=== PATIENT | male | born 1955 | race African-American/Black ===

== ENCOUNTER 2016-08-01 10:09 | Emergency (ER) | payer MEDICAID ==
[~2016-08-01] VITALS: Ht 185.4 cm; Wt 106.0 kg
[~2016-08-01 10:09] MED LIST: AMLO10TA4 PO; ATOR20TA PO; CIPR-263 PO; METF500T4 PO; MOBI7 PO; PROT40 PO; SIMV20TA6 PO; TAMS-11 PO
[2016-08-01 11:38] LABS: BASOPHILS % 0.3 % (0.0-2.0); EOSINOPHILS % 0.1 % (0.0-5.0); HEMATOCRIT. 44.6 % (42.0-52.0); HEMOGLOBIN. 14.7 g/dL (14.0-18.0); LYMPHOCYTES % 9.5 % (20.0-50.0); MEAN CORPUSCULAR VOLUME 81.8 fL (80.0-94.0); MEAN PLATELET VOLUME 7.9 fl (7.4-10.4); MONOCYTES % 3.9 % (2.0-8.0); NEUTROPHILS % 86.2 % (40.0-76.0); PLATELET 237 x1000/uL (130-400); RED BLOOD CELL COUNT 5.45 mill/uL (4.7-6.1); RED CELL DISTRIBUTION WIDTH 15.3 % (11.6-14.6); WHITE BLOOD COUNT 14.3 x1000/uL (4.5-11.0)
[2016-08-01 11:44] LABS: CLARITY URINE CLEAR (CLEAR); COLOR URINE YELLOW (YELLOW); GLUCOSE URINE 3+ (NEGATIVE); KETONES URINE NEGATIVE (NEGATIVE); LEUKOCYTE ESTERASE URINE 1+ (NEGATIVE); NITRITE URINE POSITIVE (NEGATIVE); OCCULT BLOOD URINE 2+ (NEGATIVE); PROTEIN URINE 3+ (NEGATIVE); SPECIFIC GRAVITY URINE 1.017 (1.005-1.030); UROBILINOGEN URINE 0.2 E.U./dL (0.2-1.0)
[2016-08-01 11:48] LABS: ANION GAP 16; CALCIUM 9.4 mg/dL (8.5-10.1); CARBON DIOXIDE 23 mEq/L (21-32); CHLORIDE 101 mEq/L (98-107); INDEX HEMOLYSI 1 (1-3); INDEX ICTERIC 1 (1-4); INDEX LIPEMIC 1 (1-3); UREA NITROGEN BLOOD 11 mg/dL (7-21); eGFR > 60 mL/min (>60)
[2016-08-01 12:13] LABS: RBC URINE TNTC /hpf (0-2)
[2016-08-01 12:14] LABS: WBC URINE 50-100 /hpf (0-2)
[2016-08-01 12:15] LABS: BACTERIA URINE 2+; SQUAMOUS EPITHELIAL CELL URINE NONE SEEN /lpf (RARE/1+)
[2016-08-01] MEDS ORDERED: LEVOFLOXACIN 500MG TABLET PO NR (13:00)
[2016-08-01 14:28] VITALS: BP 149/90
== END 2016-08-01 14:41 | disposition home or self-care (01) ==
LOC: ER 12:23
DX: R33.9 Retention of urine, unspecified (principal); N39.0 Urinary tract infection, site not specified; Z85.46 Personal history of malignant neoplasm of prostate; I10 Essential (primary) hypertension; E78.00 Pure hypercholesterolemia, unspecified; E11.9 Type 2 diabetes mellitus without complications
CPT/HCPCS: 36415; 51702; 80048; 81001; 85025; 99284; A4315

== ENCOUNTER 2017-06-21 13:08 | Emergency (ER) | payer MEDICAID ==
[~2017-06-21] VITALS: Ht 182.9 cm; Wt 106.5 kg
[2017-06-21 15:20] LABS: BASOPHILS % 0.9 % (0.0-2.0); EOSINOPHILS % 1.5 % (0.0-5.0); HEMATOCRIT. 40.2 % (42.0-52.0); HEMOGLOBIN. 13.5 g/dL (14.0-18.0); MEAN CORPUSCULAR HEMOGLOBIN 28.6 pg (28.0-32.0); MEAN PLATELET VOLUME 7.7 fl (7.4-10.4); MONOCYTES % 13.5 % (2.0-8.0); NEUTROPHILS % 64.1 % (40.0-76.0); PLATELET 236 x1000/uL (130-400); RED BLOOD CELL COUNT 4.73 mill/uL (4.7-6.1); RED CELL DISTRIBUTION WIDTH 15.1 % (11.6-14.6)
[2017-06-21 15:27] LABS: CHLORIDE 104 mEq/L (98-107)
[2017-06-21 15:29] LABS: PARTIAL THROMBOPLASTIN TIME 25.9 sec (23.4-31.0); PROTHROMBIN TIME 10.5 sec (9.4-11.6)
[2017-06-21 18:17] VITALS: BP 176/48
== END 2017-06-21 18:24 | disposition home or self-care (01) ==
LOC: ER 15:20
DX: K64.4 Residual hemorrhoidal skin tags (principal); I10 Essential (primary) hypertension; E11.9 Type 2 diabetes mellitus without complications; E78.00 Pure hypercholesterolemia, unspecified; Z98.890 Other specified postprocedural states
CPT/HCPCS: 36415; 80053; 83690; 83880; 84484; 85025; 85610; 85730; 86850; 86900; 93005; 99285

== ENCOUNTER 2020-11-18 04:49 | Emergency (ER) | payer MEDICARE, MEDICAID ==
[~2020-11-18] VITALS: Ht 185.4 cm; Wt 97.0 kg
[~2020-11-18 04:49] MED LIST changes: +METF-414 PO; -METF500T4 PO; -PROT40 PO; +SIMV-43 PO; -SIMV20TA6 PO; -TAMS-11 PO
[2020-11-18 05:25] VITALS: BP 167/83
[2020-11-18] MEDS ORDERED: ACET-2708 MT (05:43)
[2020-11-18] MEDS ORDERED: VALA100044 MT (05:43)
== END 2020-11-18 06:04 | disposition home or self-care (01) ==
LOC: ER 05:40
DX: B02.9 Zoster without complications (principal); E11.9 Type 2 diabetes mellitus without complications; I10 Essential (primary) hypertension; E78.00 Pure hypercholesterolemia, unspecified; Z85.51 Personal history of malignant neoplasm of bladder; Z85.46 Personal history of malignant neoplasm of prostate; Z79.899 Other long term (current) drug therapy
CPT/HCPCS: 99283